=== PATIENT | male | born 1935 | race Caucasian/White ===

== ENCOUNTER 2019-07-28 08:16 | Observation (INO) ==
[2019-07-28 09:09] LABS: Basophils % 0.5 %; Eosinophils # 0.1 K/mcL (0.0-0.6); Hematocrit 38.4 % (37.5-50.1); Hemoglobin 12.6 g/dL (12.9-16.9); Immature Granulocytes % 0.5 % (0-4); Lymphocytes # 0.9 K/mcL (0.6-4.6); Mean Corpuscular HGB Conc 32.8 g/dL (31.6-35.5); Mean Corpuscular Volume 94.6 fL (83.0-100.0); Mean Platelet Volume 10.5 fL (9.4-12.4); Monocytes # 0.8 K/mcL (0.0-1.3); Monocytes % 13.2 %; Platelet Count 127 K/mcL (140-400); Red Blood Count 4.06 M/mcL (4.19-5.50); Red Cell Distribution Width 14.1 % (11.5-14.5); Segmented Neutrophils % 68.8 %; White Blood Count 5.8 K/mcL (4.3-11.1)
[2019-07-28 09:17] LABS: INR 1.1; Prothrombin Time 12.3 Seconds (9.4-12.1)
[2019-07-28 09:19] LABS: Activated Partial Thrombo Time 28.2 Seconds (26.0-36.0)
[2019-07-28 09:28] LABS: Troponin I < 0.03 ng/mL (< 0.04)
[2019-07-28 09:29] LABS: Bilirubin,Urine Small (Negative); Blood,Urine Large (Negative); Clarity,Urine Turbid (Clear); Color,Urine Yellow (Yellow); Glucose,Urine (UA) Normal (Normal); Ketones,Urine Negative (Negative); Leukocyte Esterase,Urine Large (Negative); Nitrite,Urine Positive (Negative); Protein,Urine 100 mg/dL (Neg-Trace); Specific Gravity,Urine 1.025 (1.010-1.025); Urobilinogen,Urine Normal (Normal)
[2019-07-28 09:32] LABS: Alanine Aminotransferase 58 Units/L (7-52); Albumin 3.4 g/dL (3.5-5.7); Albumin/Globulin Ratio 1.4 (1.1-2.2); Alkaline Phosphatase 68 Units/L (34-104); Aspartate Amino Transferase 150 Units/L (13-39); BUN/Creatinine Ratio 25 (6-26); Bilirubin,Total 0.7 mg/dL (0.3-1.0); Blood Urea Nitrogen 36 mg/dL (8-23); Calcium 8.8 mg/dL (8.6-10.3); Carbon Dioxide 30 mEq/L (23-29); Chloride 105 mEq/L (98-107); Globulin 2.4 g/dL (2.4-3.5); Glucose 122 mg/dL (70-105); Magnesium 2.1 mg/dL (1.6-2.6); Osmolality,Calculated 302 (280-300); Potassium 3.7 mEq/L (3.5-5.1); Sodium 141 mEq/L (136-145); Total Protein 5.8 g/dL (6.4-8.9); eGFR For African Americans 56 (> 60); eGFR For Non-African Americans 46 (> 60)
[2019-07-28 09:38] LABS: RBC,Urine TNTC per hpf (0-3); WBC,Urine TNTC per hpf (0-3)
[2019-07-28 09:39] LABS: Bacteria,Urine Moderate per hpf (None-Few); Squamous Epithelial Cell,Urine Few per lpf (None-Few)
[2019-07-28 09:41] LABS: Thyroid Stimulating Hormone 0.889 mcIU/mL (0.340-5.600)
[2019-07-28] MEDS ORDERED: Naloxone 0.4 MG/ML INJ IVP PRN (11:45)
[2019-07-28] MEDS ORDERED: Ibuprofen 400 MG TABLET PO PRN (11:45)
[2019-07-28] MEDS ORDERED: Ondansetron 4 MG/2 ML VIAL IVP PRN (11:45)
[2019-07-28] MEDS: 0.45 % Sodium Chloride w/KCl 20 MEQ/1,000 ML MLS IVC SCH (17:36)
[2019-07-28] MEDS: Lactobacillus 1 EACH CAP.SPRINK PO SCH (20:47)
[2019-07-29] MEDS: 0.45 % Sodium Chloride w/KCl 20 MEQ/1,000 ML MLS IVC SCH (03:30)
[2019-07-29 07:15] LABS: Basophils % 0.6 %; Eosinophils # 0.2 K/mcL (0.0-0.6); Eosinophils % 3.3 %; Hematocrit 40.2 % (37.5-50.1); Hemoglobin 13.4 g/dL (12.9-16.9); Immature Granulocytes % 0.3 % (0-4); Lymphocytes # 0.9 K/mcL (0.6-4.6); Lymphocytes % 14.5 %; Mean Corpuscular HGB Conc 33.3 g/dL (31.6-35.5); Mean Corpuscular Volume 93.1 fL (83.0-100.0); Mean Platelet Volume 9.9 fL (9.4-12.4); Monocytes # 0.6 K/mcL (0.0-1.3); Monocytes % 10.1 %; Neutrophils # 4.5 K/mcL (1.6-8.9); Platelet Count 130 K/mcL (140-400); Red Blood Count 4.32 M/mcL (4.19-5.50); Red Cell Distribution Width 13.6 % (11.5-14.5); Segmented Neutrophils % 71.2 %; White Blood Count 6.4 K/mcL (4.3-11.1)
[2019-07-29 07:30] LABS: Prothrombin Time 11.7 Seconds (9.4-12.1)
[2019-07-29 07:36] LABS: Alanine Aminotransferase 53 Units/L (7-52); Albumin 3.5 g/dL (3.5-5.7); Albumin/Globulin Ratio 1.5 (1.1-2.2); Alkaline Phosphatase 69 Units/L (34-104); Aspartate Amino Transferase 111 Units/L (13-39); BUN/Creatinine Ratio 24 (6-26); Bilirubin,Total 0.7 mg/dL (0.3-1.0); Blood Urea Nitrogen 22 mg/dL (8-23); Calcium 8.6 mg/dL (8.6-10.3); Carbon Dioxide 28 mEq/L (23-29); Chloride 104 mEq/L (98-107); Globulin 2.4 g/dL (2.4-3.5); Glucose 119 mg/dL (70-105); Osmolality,Calculated 292 (280-300); Sodium 139 mEq/L (136-145); Total Protein 5.9 g/dL (6.4-8.9); eGFR For African Americans > 60 (> 60); eGFR For Non-African Americans > 60 (> 60)
[2019-07-29 08:51] LABS: % Iron Saturation 14 % (20-55); Iron 36 mcg/dL (65-175); Transferrin 189 mg/dL (203-362)
[2019-07-29] MEDS ORDERED: cefTRIAXone 1,000 MG in Water for inj. (sterile) 10 ML IVP SCH (09:00)
[2019-07-29] MEDS: Lactobacillus 1 EACH CAP.SPRINK PO SCH (09:04)
[2019-07-29 09:09] LABS: Ferritin 91 ng/mL (20-250)
[2019-07-29 09:12] LABS: Folate 12.8 ng/mL (3.0-16.0)
[2019-07-29 11:14] VITALS: BP 128/81
== END 2019-07-29 12:45 | disposition home or self-care (01) ==
LOC: INPPIK 08:16 → EMEROOPIK 08:16 → INPPIK 11:23
PROVIDERS: ADMIT Internal Medicine; ATTEND Internal Medicine

== ENCOUNTER 2019-08-27 08:33 | Inpatient (IN) ==
[2019-08-27] MEDS ORDERED: cefTRIAXone 2,000 MG in Water for inj. (sterile) 20 ML IVP ONE (09:02)
[2019-08-27 09:13] LABS: Bilirubin,Urine Negative (Negative); Blood,Urine Small (Negative); Clarity,Urine Cloudy (Clear); Color,Urine Yellow (Yellow); Glucose,Urine (UA) Normal (Normal); Ketones,Urine Negative (Negative); Leukocyte Esterase,Urine Large (Negative); Nitrite,Urine Positive (Negative); Protein,Urine 30 mg/dL (Neg-Trace); Urobilinogen,Urine Normal (Normal)
[2019-08-27 09:23] LABS: Bacteria,Urine Many per hpf (None-Few); Squamous Epithelial Cell,Urine None Seen per lpf (None-Few); WBC,Urine TNTC per hpf (0-3)
[2019-08-27 09:28] LABS: Basophils # 0.1 K/mcL (0.0-0.2); Basophils % 0.5 %; Eosinophils # 0.1 K/mcL (0.0-0.6); Eosinophils % 1.1 %; Hematocrit 37.5 % (37.5-50.1); Hemoglobin 12.5 g/dL (12.9-16.9); Immature Granulocytes % 0.4 % (0-4); Lymphocytes # 1.1 K/mcL (0.6-4.6); Mean Corpuscular HGB Conc 33.3 g/dL (31.6-35.5); Mean Corpuscular Hemoglobin 31.9 pg (28.0-33.3); Mean Corpuscular Volume 95.7 fL (83.0-100.0); Mean Platelet Volume 10.8 fL (9.4-12.4); Monocytes # 0.8 K/mcL (0.0-1.3); Neutrophils # 8.9 K/mcL (1.6-8.9); Platelet Count 121 K/mcL (140-400); Red Blood Count 3.92 M/mcL (4.19-5.50); Red Cell Distribution Width 13.2 % (11.5-14.5)
[2019-08-27 09:47] LABS: Alanine Aminotransferase 10 Units/L (7-52); Albumin 3.7 g/dL (3.5-5.7); Albumin/Globulin Ratio 1.5 (1.1-2.2); Alkaline Phosphatase 75 Units/L (34-104); Aspartate Amino Transferase 20 Units/L (13-39); BUN/Creatinine Ratio 22 (6-26); Bilirubin,Total 0.7 mg/dL (0.3-1.0); Blood Urea Nitrogen 24 mg/dL (8-23); Calcium 9.1 mg/dL (8.6-10.3); Carbon Dioxide 29 mEq/L (23-29); Chloride 105 mEq/L (98-107); Creatine Kinase 134 Units/L (30-223); Globulin 2.5 g/dL (2.4-3.5); Glucose 107 mg/dL (70-105); Osmolality,Calculated 299 (280-300); Potassium 3.9 mEq/L (3.5-5.1); Sodium 142 mEq/L (136-145); Total Protein 6.2 g/dL (6.4-8.9); Troponin I < 0.03 ng/mL (< 0.04); eGFR For African Americans > 60 (> 60); eGFR For Non-African Americans > 60 (> 60)
[2019-08-27 10:00] LABS: Thyroid Stimulating Hormone 1.375 mcIU/mL (0.340-5.600)
[2019-08-27] MEDS ORDERED: 0.9 % Sodium Chloride 1,000 ML IVC SCH (10:00)
[2019-08-27] MEDS ORDERED: Naloxone 0.4 MG/ML INJ IVP PRN ×2 (10:31→12:06)
[2019-08-27] MEDS: 0.9 % Sodium Chloride 1,000 ML IVC SCH ×2 (12:39→19:56)
[2019-08-27] MEDS ORDERED: ZOLPIDEM TARTRATE PO PRN (12:40)
[2019-08-27] MEDS ORDERED: Melatonin 3 MG TABLET PO PRN (12:40)
[2019-08-27] MEDS: Lactobacillus 1 EACH CAP.SPRINK PO SCH (19:57)
[2019-08-28] MEDS: 0.9 % Sodium Chloride 1,000 ML IVC SCH ×2 (03:39→15:58)
[2019-08-28 04:26] LABS: Hematocrit 37.2 % (37.5-50.1); Hemoglobin 12.3 g/dL (12.9-16.9); Mean Corpuscular HGB Conc 33.1 g/dL (31.6-35.5); Mean Corpuscular Hemoglobin 31.5 pg (28.0-33.3); Mean Corpuscular Volume 95.4 fL (83.0-100.0); Mean Platelet Volume 10.3 fL (9.4-12.4); Platelet Count 119 K/mcL (140-400); Red Cell Distribution Width 13.2 % (11.5-14.5); White Blood Count 16.3 K/mcL (4.3-11.1)
[2019-08-28 05:11] LABS: BUN/Creatinine Ratio 16 (6-26); Blood Urea Nitrogen 15 mg/dL (8-23); Calcium 8.5 mg/dL (8.6-10.3); Carbon Dioxide 27 mEq/L (23-29); Chloride 105 mEq/L (98-107); Glucose 112 mg/dL (70-105); Osmolality,Calculated 292 (280-300); Potassium 3.9 mEq/L (3.5-5.1); Sodium 140 mEq/L (136-145); eGFR For African Americans > 60 (> 60); eGFR For Non-African Americans > 60 (> 60)
[2019-08-28] MEDS: Vitamin E 200 UNIT (90MG) CAPSULE PO SCH (08:59)
[2019-08-28] MEDS: Cholecalciferol (D-3) 1,000 UNIT (25MCG) TABLET PO SCH (08:59)
[2019-08-28] MEDS: Lactobacillus 1 EACH CAP.SPRINK PO SCH ×2 (08:59→19:51)
[2019-08-28] MEDS: Ascorbic Acid 500 MG TABLET PO SCH (08:59)
[2019-08-28] MEDS ORDERED: hydroCHLOROthiazide 25 MG TABLET PO SCH (09:00)
[2019-08-28] MEDS ORDERED: NON-FORMULARY MEDICATION 1 EACH EACH (Omega-3/Dha/Epa/Fish Oil [Fish Oil 1,000 Mg Softgel] PO SCH (09:00)
[2019-08-28] MEDS ORDERED: CO Q10 100 MG PO SCH (09:00)
[2019-08-28] MEDS ORDERED: GINKGO BILOBA PO SCH (09:00)
[2019-08-28] MEDS: cefTRIAXone 2,000 MG in 0.9 % Sodium Chloride Mini Bag 100 ML IVPB SCH (09:00)
[2019-08-28] MEDS: Mirabegron [Myrbetriq] 50 MG PO SCH (09:01)
[2019-08-29] MEDS: 0.9 % Sodium Chloride 1,000 ML IVC SCH ×3 (05:14→20:22)
[2019-08-29] MEDS: *HR* Enoxaparin 40 MG/0.4 ML SYRINGE SQ SCH (05:15)
[2019-08-29] MEDS: Vitamin E 200 UNIT (90MG) CAPSULE PO SCH (08:20)
[2019-08-29] MEDS: Lactobacillus 1 EACH CAP.SPRINK PO SCH ×2 (08:20→19:40)
[2019-08-29] MEDS: Ascorbic Acid 500 MG TABLET PO SCH (08:20)
[2019-08-29] MEDS: Cholecalciferol (D-3) 1,000 UNIT (25MCG) TABLET PO SCH (08:20)
[2019-08-29] MEDS: cefTRIAXone 2,000 MG in 0.9 % Sodium Chloride Mini Bag 100 ML IVPB SCH (08:20)
[2019-08-29] MEDS: Mirabegron [Myrbetriq] 50 MG PO SCH (08:21)
[2019-08-29 11:24] LABS: Hemoglobin 13.2 g/dL (12.9-16.9); Mean Corpuscular Hemoglobin 31.6 pg (28.0-33.3); Mean Corpuscular Volume 95.7 fL (83.0-100.0); Mean Platelet Volume 10.8 fL (9.4-12.4); Platelet Count 138 K/mcL (140-400); Red Blood Count 4.18 M/mcL (4.19-5.50); Red Cell Distribution Width 13.3 % (11.5-14.5); White Blood Count 12.3 K/mcL (4.3-11.1)
[2019-08-29 12:01] LABS: BUN/Creatinine Ratio 13 (6-26); Blood Urea Nitrogen 13 mg/dL (8-23); Calcium 8.9 mg/dL (8.6-10.3); Carbon Dioxide 29 mEq/L (23-29); Chloride 105 mEq/L (98-107); Glucose 123 mg/dL (70-105); Osmolality,Calculated 295 (280-300); Sodium 142 mEq/L (136-145); eGFR For African Americans > 60 (> 60); eGFR For Non-African Americans > 60 (> 60)
[2019-08-30] MEDS: Ascorbic Acid 500 MG TABLET PO SCH (06:21)
[2019-08-30] MEDS: *HR* Enoxaparin 40 MG/0.4 ML SYRINGE SQ SCH (06:22)
[2019-08-30] MEDS ORDERED: cefTRIAXone 2,000 MG in Water for inj. (sterile) 20 ML IVPB SCH (09:00)
[2019-08-30] MEDS: Cholecalciferol (D-3) 1,000 UNIT (25MCG) TABLET PO SCH (09:54)
[2019-08-30] MEDS: Lactobacillus 1 EACH CAP.SPRINK PO SCH ×2 (09:54→22:12)
[2019-08-30] MEDS: Vitamin E 200 UNIT (90MG) CAPSULE PO SCH (09:55)
[2019-08-30] MEDS: Mirabegron [Myrbetriq] 50 MG PO SCH (09:57)
[2019-08-30] MEDS: 0.9 % Sodium Chloride 1,000 ML IVC SCH (10:04)
[2019-08-31] MEDS: Ascorbic Acid 500 MG TABLET PO SCH (06:07)
[2019-08-31] MEDS: *HR* Enoxaparin 40 MG/0.4 ML SYRINGE SQ SCH (06:07)
[2019-08-31] MEDS: 0.9 % Sodium Chloride 1,000 ML IVC SCH (06:12)
[2019-08-31 06:50] VITALS: BP 146/93
[2019-08-31] MEDS: Cholecalciferol (D-3) 1,000 UNIT (25MCG) TABLET PO SCH (08:05)
[2019-08-31] MEDS: Lactobacillus 1 EACH CAP.SPRINK PO SCH (08:05)
[2019-08-31] MEDS: Mirabegron [Myrbetriq] 50 MG PO SCH (08:06)
[2019-08-31] MEDS: Vitamin E 200 UNIT (90MG) CAPSULE PO SCH (08:06)
== END 2019-08-31 10:22 | disposition other institution (70) | DRG 690 ==
LOC: EMEROOPIK 08:33 → INPPIK 08:33
PROVIDERS: ADMIT Family Medicine; ATTEND Family Medicine

== ENCOUNTER 2019-08-31 10:29 | Inpatient (IN) ==
[2019-08-31] MEDS: Lactobacillus 1 EACH CAP.SPRINK PO SCH (20:27)
[2019-09-01] MEDS: Ascorbic Acid 500 MG TABLET PO SCH (05:43)
[2019-09-01] MEDS: *HR* Enoxaparin 40 MG/0.4 ML SYRINGE SQ SCH (05:43)
[2019-09-01 06:06] LABS: Basophils # 0.1 K/mcL (0.0-0.2); Basophils % 0.9 %; Eosinophils # 0.5 K/mcL (0.0-0.6); Eosinophils % 7.5 %; Hematocrit 38.6 % (37.5-50.1); Hemoglobin 12.5 g/dL (12.9-16.9); Lymphocytes # 1.8 K/mcL (0.6-4.6); Mean Corpuscular HGB Conc 32.4 g/dL (31.6-35.5); Mean Corpuscular Hemoglobin 30.9 pg (28.0-33.3); Mean Corpuscular Volume 95.3 fL (83.0-100.0); Mean Platelet Volume 10.1 fL (9.4-12.4); Monocytes # 0.6 K/mcL (0.0-1.3); Monocytes % 7.9 %; Neutrophils # 3.9 K/mcL (1.6-8.9); Platelet Count 171 K/mcL (140-400); Red Blood Count 4.05 M/mcL (4.19-5.50); Red Cell Distribution Width 13.4 % (11.5-14.5); Segmented Neutrophils % 56.7 %; White Blood Count 6.9 K/mcL (4.3-11.1)
[2019-09-01 06:25] LABS: BUN/Creatinine Ratio 18 (6-26); Blood Urea Nitrogen 24 mg/dL (8-23); Carbon Dioxide 30 mEq/L (23-29); Chloride 106 mEq/L (98-107); Glucose 118 mg/dL (70-105); Osmolality,Calculated 303 (280-300); Potassium 3.9 mEq/L (3.5-5.1); Sodium 144 mEq/L (136-145); eGFR For African Americans > 60 (> 60); eGFR For Non-African Americans 52 (> 60)
[2019-09-01] MEDS: Cholecalciferol (D-3) 1,000 UNIT (25MCG) TABLET PO SCH (09:08)
[2019-09-01] MEDS: Lactobacillus 1 EACH CAP.SPRINK PO SCH ×2 (09:08→19:47)
[2019-09-01] MEDS: Melatonin 3 MG TABLET PO PRN (19:48)
[2019-09-02] MEDS: Ascorbic Acid 500 MG TABLET PO SCH (06:12)
[2019-09-02] MEDS: *HR* Enoxaparin 40 MG/0.4 ML SYRINGE SQ SCH (06:12)
[2019-09-02] MEDS: Lactobacillus 1 EACH CAP.SPRINK PO SCH ×2 (08:20→19:53)
[2019-09-02] MEDS: Cholecalciferol (D-3) 1,000 UNIT (25MCG) TABLET PO SCH (08:20)
[2019-09-03] MEDS: Ascorbic Acid 500 MG TABLET PO SCH (05:32)
[2019-09-03] MEDS: *HR* Enoxaparin 40 MG/0.4 ML SYRINGE SQ SCH (05:32)
[2019-09-03] MEDS: Lactobacillus 1 EACH CAP.SPRINK PO SCH ×2 (09:36→20:08)
[2019-09-03] MEDS: Cholecalciferol (D-3) 1,000 UNIT (25MCG) TABLET PO SCH (09:36)
[2019-09-03] MEDS: Melatonin 3 MG TABLET PO PRN (20:09)
[2019-09-04] MEDS: Ascorbic Acid 500 MG TABLET PO SCH (05:39)
[2019-09-04] MEDS: *HR* Enoxaparin 40 MG/0.4 ML SYRINGE SQ SCH (05:39)
[2019-09-04] MEDS: Lactobacillus 1 EACH CAP.SPRINK PO SCH ×2 (10:24→20:36)
[2019-09-04] MEDS: Cholecalciferol (D-3) 1,000 UNIT (25MCG) TABLET PO SCH (10:25)
[2019-09-04] MEDS: Melatonin 3 MG TABLET PO PRN (20:38)
[2019-09-05] MEDS: Ascorbic Acid 500 MG TABLET PO SCH (05:31)
[2019-09-05] MEDS: *HR* Enoxaparin 40 MG/0.4 ML SYRINGE SQ SCH (05:31)
[2019-09-05 06:33] LABS: Hematocrit 39.4 % (37.5-50.1); Hemoglobin 12.9 g/dL (12.9-16.9); Mean Corpuscular HGB Conc 32.7 g/dL (31.6-35.5); Mean Corpuscular Hemoglobin 31.4 pg (28.0-33.3); Mean Corpuscular Volume 95.9 fL (83.0-100.0); Mean Platelet Volume 10.2 fL (9.4-12.4); Platelet Count 175 K/mcL (140-400); Red Blood Count 4.11 M/mcL (4.19-5.50); Red Cell Distribution Width 13.2 % (11.5-14.5); White Blood Count 7.8 K/mcL (4.3-11.1)
[2019-09-05 06:52] LABS: BUN/Creatinine Ratio 27 (6-26); Blood Urea Nitrogen 27 mg/dL (8-23); Carbon Dioxide 31 mEq/L (23-29); Chloride 105 mEq/L (98-107); Glucose 112 mg/dL (70-105); Osmolality,Calculated 300 (280-300); Sodium 142 mEq/L (136-145); eGFR For African Americans > 60 (> 60); eGFR For Non-African Americans > 60 (> 60)
[2019-09-05] MEDS: Cholecalciferol (D-3) 1,000 UNIT (25MCG) TABLET PO SCH (08:48)
[2019-09-05] MEDS: Lactobacillus 1 EACH CAP.SPRINK PO SCH ×2 (08:48→20:02)
[2019-09-05] MEDS: Melatonin 3 MG TABLET PO PRN (20:03)
[2019-09-06] MEDS: *HR* Enoxaparin 40 MG/0.4 ML SYRINGE SQ SCH (05:42)
[2019-09-06] MEDS: Ascorbic Acid 500 MG TABLET PO SCH (05:42)
[2019-09-06 06:47] VITALS: BP 166/84
[2019-09-06] MEDS: Cholecalciferol (D-3) 1,000 UNIT (25MCG) TABLET PO SCH (08:44)
[2019-09-06] MEDS: Lactobacillus 1 EACH CAP.SPRINK PO SCH (08:44)
== END 2019-09-06 13:46 | disposition home health service (06) | DRG 945 ==
LOC: INPPIK 10:29
PROVIDERS: ADMIT Family Medicine; ATTEND Family Medicine

== ENCOUNTER 2019-09-28 08:57 | Inpatient (IN) ==
[2019-09-28 09:37] LABS: Basophils % 0.5 %; Eosinophils # 0.1 K/mcL (0.0-0.6); Eosinophils % 0.9 %; Hematocrit 40.9 % (37.5-50.1); Hemoglobin 13.4 g/dL (12.9-16.9); Immature Granulocytes % 0.2 % (0-4); Lymphocytes # 0.7 K/mcL (0.6-4.6); Lymphocytes % 7.7 %; Mean Corpuscular HGB Conc 32.8 g/dL (31.6-35.5); Mean Corpuscular Hemoglobin 31.5 pg (28.0-33.3); Mean Corpuscular Volume 96.2 fL (83.0-100.0); Mean Platelet Volume 11.3 fL (9.4-12.4); Monocytes # 0.4 K/mcL (0.0-1.3); Monocytes % 4.3 %; Neutrophils # 7.6 K/mcL (1.6-8.9); Platelet Count 119 K/mcL (140-400); Red Blood Count 4.25 M/mcL (4.19-5.50); Red Cell Distribution Width 13.4 % (11.5-14.5); Segmented Neutrophils % 86.4 %; White Blood Count 8.8 K/mcL (4.3-11.1)
[2019-09-28 09:54] LABS: Alanine Aminotransferase 9 Units/L (7-52); Albumin 3.8 g/dL (3.5-5.7); Albumin/Globulin Ratio 1.6 (1.1-2.2); Alkaline Phosphatase 67 Units/L (34-104); Aspartate Amino Transferase 18 Units/L (13-39); BUN/Creatinine Ratio 25 (6-26); Bilirubin,Total 0.5 mg/dL (0.3-1.0); Blood Urea Nitrogen 29 mg/dL (8-23); Calcium 9.1 mg/dL (8.6-10.3); Carbon Dioxide 28 mEq/L (23-29); Chloride 106 mEq/L (98-107); Globulin 2.4 g/dL (2.4-3.5); Glucose 149 mg/dL (70-105); Osmolality,Calculated 305 (280-300); Potassium 4.1 mEq/L (3.5-5.1); Sodium 143 mEq/L (136-145); Total Protein 6.2 g/dL (6.4-8.9); eGFR For African Americans > 60 (> 60); eGFR For Non-African Americans 60 (> 60)
[2019-09-28 09:55] LABS: Troponin I < 0.03 ng/mL (< 0.04)
[2019-09-28 11:00] LABS: Bilirubin,Urine Negative (Negative); Blood,Urine Trace-intact (Negative); Clarity,Urine Slightly Cloudy (Clear); Color,Urine Yellow (Yellow); Glucose,Urine (UA) Normal (Normal); Ketones,Urine Negative (Negative); Leukocyte Esterase,Urine Small (Negative); Nitrite,Urine Negative (Negative); PH,Urine 6.5 pH Units (5.0-8.0); Protein,Urine Negative (Neg-Trace); Specific Gravity,Urine 1.025 (1.010-1.025); Urobilinogen,Urine Normal (Normal)
[2019-09-28 11:14] LABS: Bacteria,Urine Few per hpf (None-Few); Mucus,Urine Few per lpf (Few); Squamous Epithelial Cell,Urine Few per lpf (None-Few); WBC,Urine TNTC per hpf (0-3)
[2019-09-28] MEDS ORDERED: 0.9 % Sodium Chloride 1,000 ML IV ONE (11:35)
[2019-09-28] MEDS ORDERED: cefTRIAXone 1,000 MG in 0.9 % Sodium Chloride Mini Bag 100 ML IVPB ONE (11:35)
[2019-09-28] MEDS ORDERED: Naloxone 0.4 MG/ML INJ IVP PRN (13:02)
[2019-09-28] MEDS ORDERED: Mag Hydrox/Al Hydrox/Simeth 30 ML UDC PO PRN (13:02)
[2019-09-28] MEDS: Lactobacillus 1 EACH CAP.SPRINK PO SCH (22:47)
[2019-09-28] MEDS: 0.9 % Sodium Chloride 1,000 ML IV SCH (22:47)
[2019-09-29 06:19] LABS: Basophils % 0.6 %; Eosinophils # 0.4 K/mcL (0.0-0.6); Eosinophils % 5.2 %; Hematocrit 38.5 % (37.5-50.1); Hemoglobin 12.6 g/dL (12.9-16.9); Immature Granulocytes % 0.3 % (0-4); Lymphocytes # 1.4 K/mcL (0.6-4.6); Mean Corpuscular HGB Conc 32.7 g/dL (31.6-35.5); Mean Corpuscular Hemoglobin 31.3 pg (28.0-33.3); Mean Corpuscular Volume 95.5 fL (83.0-100.0); Mean Platelet Volume 10.5 fL (9.4-12.4); Monocytes # 0.5 K/mcL (0.0-1.3); Monocytes % 6.9 %; Neutrophils # 4.5 K/mcL (1.6-8.9); Platelet Count 127 K/mcL (140-400); Red Blood Count 4.03 M/mcL (4.19-5.50); Red Cell Distribution Width 13.2 % (11.5-14.5); White Blood Count 6.8 K/mcL (4.3-11.1)
[2019-09-29] MEDS: 0.9 % Sodium Chloride 1,000 ML IV SCH ×2 (06:44→09:42)
[2019-09-29 09:25] LABS: BUN/Creatinine Ratio 18 (6-26); Blood Urea Nitrogen 17 mg/dL (8-23); Calcium 8.5 mg/dL (8.6-10.3); Carbon Dioxide 28 mEq/L (23-29); Chloride 106 mEq/L (98-107); Glucose 100 mg/dL (70-105); Osmolality,Calculated 292 (280-300); Potassium 3.9 mEq/L (3.5-5.1); Sodium 140 mEq/L (136-145); eGFR For African Americans > 60 (> 60); eGFR For Non-African Americans > 60 (> 60)
[2019-09-29] MEDS: Lactobacillus 1 EACH CAP.SPRINK PO SCH ×2 (09:39→20:49)
[2019-09-29] MEDS: MYRBETRIC 50 MG PO SCH (09:41)
[2019-09-29] MEDS: cefTRIAXone 2,000 MG in Water for inj. (sterile) 20 ML IVPB SCH (09:41)
[2019-09-30] MEDS: 0.9 % Sodium Chloride 1,000 ML IV SCH (01:03)
[2019-09-30 06:39] VITALS: BP 157/85
[2019-09-30 06:46] LABS: Hematocrit 38.3 % (37.5-50.1); Hemoglobin 12.7 g/dL (12.9-16.9); Mean Corpuscular HGB Conc 33.2 g/dL (31.6-35.5); Mean Corpuscular Hemoglobin 31.1 pg (28.0-33.3); Mean Corpuscular Volume 93.9 fL (83.0-100.0); Mean Platelet Volume 10.6 fL (9.4-12.4); Platelet Count 127 K/mcL (140-400); Red Blood Count 4.08 M/mcL (4.19-5.50); Red Cell Distribution Width 13.1 % (11.5-14.5); White Blood Count 6.6 K/mcL (4.3-11.1)
[2019-09-30 07:06] LABS: BUN/Creatinine Ratio 13 (6-26); Blood Urea Nitrogen 12 mg/dL (8-23); Calcium 8.8 mg/dL (8.6-10.3); Carbon Dioxide 30 mEq/L (23-29); Chloride 106 mEq/L (98-107); Glucose 107 mg/dL (70-105); Osmolality,Calculated 294 (280-300); Potassium 4.2 mEq/L (3.5-5.1); Sodium 142 mEq/L (136-145); eGFR For African Americans > 60 (> 60); eGFR For Non-African Americans > 60 (> 60)
[2019-09-30] MEDS: Lactobacillus 1 EACH CAP.SPRINK PO SCH (08:32)
[2019-09-30] MEDS: cefTRIAXone 2,000 MG in Water for inj. (sterile) 20 ML IVPB SCH (08:32)
[2019-09-30] MEDS: MYRBETRIC 50 MG PO SCH (08:33)
[2019-09-30] MEDS ORDERED: *HR* Enoxaparin 40 MG/0.4 ML SYRINGE SQ SCH (09:00)
== END 2019-09-30 15:40 | DRG 690 ==
LOC: INPPIK 08:57 → EMEROOPIK 08:57 → INPPIK 13:32
PROVIDERS: ADMIT Family Medicine; ATTEND Family Medicine

== ENCOUNTER 2019-11-24 10:09 | Observation (INO) ==
[2019-11-24] MEDS ORDERED: Haloperidol Lactate 5 MG/ML VIAL IVP ONE (10:16)
[2019-11-24] MEDS ORDERED: 0.9 % Sodium Chloride 500 ML IVC ONE (10:16)
[2019-11-24] MEDS ORDERED: cefTRIAXone 2,000 MG in 0.9 % Sodium Chloride Mini Bag 100 ML IVPB ONE (10:16)
[2019-11-24] MEDS ORDERED: 0.9 % Sodium Chloride 1,000 ML IVC SCH (10:30)
[2019-11-24 10:41] LABS: Basophils % 0.5 %; Eosinophils # 0.1 K/mcL (0.0-0.6); Eosinophils % 1.4 %; Hematocrit 40.9 % (37.5-50.1); Hemoglobin 13.3 g/dL (12.9-16.9); Immature Granulocytes % 0.5 % (0-4); Lymphocytes # 0.2 K/mcL (0.6-4.6); Lymphocytes % 5.6 %; Mean Corpuscular HGB Conc 32.5 g/dL (31.6-35.5); Mean Corpuscular Hemoglobin 30.7 pg (28.0-33.3); Mean Corpuscular Volume 94.5 fL (83.0-100.0); Mean Platelet Volume 10.3 fL (9.4-12.4); Monocytes % 0.5 %; Neutrophils # 3.9 K/mcL (1.6-8.9); Platelet Count 127 K/mcL (140-400); Red Blood Count 4.33 M/mcL (4.19-5.50); Red Cell Distribution Width 13.8 % (11.5-14.5); Segmented Neutrophils % 91.5 %; White Blood Count 4.3 K/mcL (4.3-11.1)
[2019-11-24 11:01] LABS: Alanine Aminotransferase 22 Units/L (7-52); Albumin 3.7 g/dL (3.5-5.7); Albumin/Globulin Ratio 1.2 (1.1-2.2); Alkaline Phosphatase 76 Units/L (34-104); Aspartate Amino Transferase 31 Units/L (13-39); BUN/Creatinine Ratio 23 (6-26); Bilirubin,Direct 0.1 mg/dL (0.0-0.2); Bilirubin,Indirect 0.7 mg/dL (0.0-1.0); Bilirubin,Total 0.8 mg/dL (0.3-1.0); Blood Urea Nitrogen 30 mg/dL (8-23); Calcium 9.1 mg/dL (8.6-10.3); Carbon Dioxide 32 mEq/L (23-29); Chloride 98 mEq/L (98-107); Globulin 3.1 g/dL (2.4-3.5); Glucose 147 mg/dL (70-105); Osmolality,Calculated 299 (280-300); Potassium 3.8 mEq/L (3.5-5.1); Sodium 140 mEq/L (136-145); Total Protein 6.8 g/dL (6.4-8.9); eGFR For African Americans > 60 (> 60); eGFR For Non-African Americans 53 (> 60)
[2019-11-24 11:03] LABS: Activated Partial Thrombo Time 26.9 Seconds (26.0-36.0); Prothrombin Time 12.3 Seconds (9.4-12.1)
[2019-11-24 11:04] LABS: INR 1.1
[2019-11-24 11:07] LABS: Platelet Estimate Decreased (Normal)
[2019-11-24 11:54] LABS: Bilirubin,Urine Negative (Negative); Blood,Urine Moderate (Negative); Clarity,Urine Cloudy (Clear); Color,Urine Yellow (Yellow); Glucose,Urine (UA) Normal (Normal); Ketones,Urine Negative (Negative); Leukocyte Esterase,Urine Large (Negative); Nitrite,Urine Positive (Negative); PH,Urine 7.5 pH Units (5.0-8.0); Protein,Urine >=300 mg/dL (Neg-Trace); Specific Gravity,Urine 1.025 (1.010-1.025); Urobilinogen,Urine Normal (Normal)
[2019-11-24 12:02] LABS: RBC,Urine 15-30 per hpf (0-3); WBC,Urine TNTC per hpf (0-3)
[2019-11-24 12:03] LABS: Bacteria,Urine Moderate per hpf (None-Few); Mucus,Urine Few per lpf (Few)
[2019-11-24] MEDS ORDERED: 0.9 % Sodium Chloride 1,000 ML IVC ONE (12:07)
[2019-11-24] MEDS ORDERED: Melatonin 3 MG TABLET PO PRN (14:01)
[2019-11-24] MEDS ORDERED: Ondansetron 4 MG/2 ML VIAL IVP PRN (14:14)
[2019-11-24] MEDS ORDERED: Naloxone 0.4 MG/ML INJ IVP PRN (14:14)
[2019-11-24] MEDS ORDERED: 0.9 % Sodium Chloride 1,000 ML IV SCH (14:30)
[2019-11-24] MEDS: Piperacillin/Tazobactam 3.375 GM in 0.9 % Sodium Chloride Mini Bag 100 ML IVPB SCH (19:24)
[2019-11-24] MEDS: Carbidopa/Levodopa 25/250 TABLET PO SCH (21:43)
[2019-11-25] MEDS: Piperacillin/Tazobactam 3.375 GM in 0.9 % Sodium Chloride Mini Bag 100 ML IVPB SCH (01:29)
[2019-11-25] MEDS ORDERED: Piperacillin/Tazobactam 3.375 GM in 0.9 % Sodium Chloride Mini Bag 100 ML IVPB SCH (04:00)
[2019-11-25 06:37] LABS: Hematocrit 33.1 % (37.5-50.1); Hemoglobin 10.7 g/dL (12.9-16.9); Mean Corpuscular HGB Conc 32.3 g/dL (31.6-35.5); Mean Corpuscular Hemoglobin 30.8 pg (28.0-33.3); Mean Corpuscular Volume 95.4 fL (83.0-100.0); Red Blood Count 3.47 M/mcL (4.19-5.50); Red Cell Distribution Width 14.4 % (11.5-14.5); White Blood Count 6.8 K/mcL (4.3-11.1)
[2019-11-25 06:40] LABS: Platelet Count 95 K/mcL (140-400)
[2019-11-25 06:51] VITALS: BP 132/82
[2019-11-25 07:00] LABS: BUN/Creatinine Ratio 26 (6-26); Blood Urea Nitrogen 29 mg/dL (8-23); Calcium 8.2 mg/dL (8.6-10.3); Carbon Dioxide 28 mEq/L (23-29); Chloride 107 mEq/L (98-107); Glucose 101 mg/dL (70-105); Osmolality,Calculated 304 (280-300); Potassium 3.7 mEq/L (3.5-5.1); Sodium 144 mEq/L (136-145); eGFR For African Americans > 60 (> 60); eGFR For Non-African Americans > 60 (> 60)
[2019-11-25] MEDS ORDERED: Ascorbic Acid 500 MG TABLET PO SCH (07:30)
[2019-11-25] MEDS ORDERED: NON-FORMULARY MEDICATION 1 EACH EACH (Omega-3/Dha/Epa/Fish Oil [Fish Oil 1,000 Mg Softgel] PO SCH (09:00)
[2019-11-25] MEDS ORDERED: Cholecalciferol (D-3) 1,000 UNIT (25MCG) TABLET PO SCH (09:00)
[2019-11-25] MEDS ORDERED: Mirabegron [Myrbetriq] 50 MG PO SCH (09:00)
[2019-11-25] MEDS ORDERED: levoFLOXacin 500 MG TABLET PO SCH (09:00)
[2019-11-25] MEDS ORDERED: cefTRIAXone 2,000 MG in 0.9 % Sodium Chloride Mini Bag 100 ML IVPB SCH (09:00)
[2019-11-25] MEDS: Carbidopa/Levodopa 25/250 TABLET PO SCH (09:46)
[2019-11-28 15:06] LABS: Acinetobacter baumannii by PCR Not Detected (Not Detect); Candida albicans by PCR Not Detected (Not Detect); Enterobacter cloacae Cmplx PCR Not Detected (Not Detect); Enterococcus by PCR Not Detected (Not Detect); Escherichia coli by PCR Not Detected (Not Detect); Klebsiella oxytoca by PCR Not Detected (Not Detect); Klebsiella pneumoniae by PCR Not Detected (Not Detect); Proteus by PCR DETECTED (Not Detect); Pseudomonas aeruginosa by PCR Not Detected (Not Detect); Serratia marcescens by PCR Not Detected (Not Detect); Staphylococcus aureus by PCR Not Detected (Not Detect); Staphylococcus by PCR Not Detected (Not Detect); Streptococcus agalactiae(B)PCR Not Detected (Not Detect); Streptococcus by PCR Not Detected (Not Detect); Streptococcus pneumoniae PCR Not Detected (Not Detect); Streptococcus pyogenes (A) PCR Not Detected (Not Detect)
[2019-11-28 15:07] LABS: Candida glabrata by PCR Not Detected (Not Detect); Candida krusei by PCR Not Detected (Not Detect); Candida parapsilosis by PCR Not Detected (Not Detect); Candida tropicalis by PCR Not Detected (Not Detect)
== END 2019-11-25 12:56 ==
LOC: INPPIK 10:09 → EMEROOPIK 10:09 → INPPIK 13:33
PROVIDERS: ADMIT Family Medicine; ATTEND Family Medicine

== ENCOUNTER 2019-12-20 09:03 | Inpatient (IN) ==
[2019-12-20] MEDS ORDERED: 0.9 % Sodium Chloride 500 ML IVC ONE (09:13)
[2019-12-20 09:49] LABS: Hematocrit 44.3 % (37.5-50.1); Hemoglobin 13.9 g/dL (12.9-16.9); Mean Corpuscular HGB Conc 31.4 g/dL (31.6-35.5); Mean Corpuscular Hemoglobin 30.6 pg (28.0-33.3); Mean Corpuscular Volume 97.6 fL (83.0-100.0); Mean Platelet Volume 10.1 fL (9.4-12.4); Platelet Count 204 K/mcL (140-400); Red Blood Count 4.54 M/mcL (4.19-5.50); Red Cell Distribution Width 14.6 % (11.5-14.5)
[2019-12-20 10:02] LABS: White Blood Count 37.6 K/mcL (4.3-11.1)
[2019-12-20 10:06] LABS: Troponin I < 0.03 ng/mL (< 0.04)
[2019-12-20 10:07] LABS: Alanine Aminotransferase 18 Units/L (7-52); Albumin 3.1 g/dL (3.5-5.7); Albumin/Globulin Ratio 0.8 (1.1-2.2); Alkaline Phosphatase 99 Units/L (34-104); Aspartate Amino Transferase 16 Units/L (13-39); BUN/Creatinine Ratio 49 (6-26); Bilirubin,Direct 0.7 mg/dL (0.0-0.2); Bilirubin,Indirect 0.7 mg/dL (0.0-1.0); Bilirubin,Total 1.4 mg/dL (0.3-1.0); Blood Urea Nitrogen 77 mg/dL (8-23); Calcium 9.2 mg/dL (8.6-10.3); Carbon Dioxide 32 mEq/L (23-29); Chloride 109 mEq/L (98-107); Globulin 3.9 g/dL (2.4-3.5); Glucose 185 mg/dL (70-105); Osmolality,Calculated 348 (280-300); Potassium 4.2 mEq/L (3.5-5.1); Sodium 155 mEq/L (136-145); eGFR For African Americans 52 (> 60); eGFR For Non-African Americans 43 (> 60)
[2019-12-20 10:16] LABS: Prothrombin Time 14.8 Seconds (9.4-12.1)
[2019-12-20 10:17] LABS: Activated Partial Thrombo Time 25.7 Seconds (26.0-36.0); INR 1.3
[2019-12-20] MEDS ORDERED: Piperacillin/Tazobactam 3.375 GM in 0.9 % Sodium Chloride Mini Bag 100 ML IVPB ONE (10:18)
[2019-12-20 10:23] LABS: Hypersegmented Neutrophils Present (Not Present); Lymphocytes # 3.8 K/mcL (0.6-4.6); Monocytes # 1.5 K/mcL (0.0-1.3); Neutrophils # 30.8 K/mcL (1.6-8.9)
[2019-12-20 10:24] LABS: Platelet Estimate Normal (Normal)
[2019-12-20 11:04] LABS: Bilirubin,Urine Small (Negative); Blood,Urine Large (Negative); Clarity,Urine Turbid (Clear); Color,Urine Other (Yellow); Glucose,Urine (UA) Normal (Normal); Ketones,Urine Negative (Negative); Leukocyte Esterase,Urine Large (Negative); Nitrite,Urine Positive (Negative); PH,Urine >=9.0 pH Units (5.0-8.0); Protein,Urine 100 mg/dL (Neg-Trace); Urobilinogen,Urine Normal (Normal)
[2019-12-20 11:14] LABS: Bacteria,Urine Many per hpf (None-Few); Mucus,Urine Many per lpf (Few); RBC,Urine TNTC per hpf (0-3); Squamous Epithelial Cell,Urine Few per lpf (None-Few); Triple Phosphate Crystal,Urine Present; WBC,Urine TNTC per hpf (0-3)
[2019-12-20 11:19] LABS: Amphetamine Screen,Urine Negative ng/mL (Cutoff=1000); Barbiturate Screen,Urine Negative ng/mL (Cutoff=200); Benzodiazepines Screen,Urine Negative ng/mL (Cutoff=200); Cannabinoid Screen,Urine Negative ng/mL (Cutoff = 50); Cocaine Screen,Urine Negative ng/mL (Cutoff= 300); Opiate Screen,Urine Negative ng/mL (Cutoff=300); Phencyclidine Screen,Urine Negative ng/mL (Cutoff=25)
[2019-12-20] MEDS ORDERED: Naloxone 0.4 MG/ML INJ IVP PRN (12:23)
[2019-12-20] MEDS ORDERED: Ondansetron 4 MG/2 ML VIAL IVP PRN (12:23)
[2019-12-20] MEDS ORDERED: 0.9 % Sodium Chloride 1,000 ML IV SCH (12:30)
[2019-12-20] MEDS: 0.9 % Sodium Chloride 1,000 ML IVC SCH ×2 (14:58→15:08)
[2019-12-20 17:19] LABS: Basophils # 0.1 K/mcL (0.0-0.2); Basophils % 0.3 %; Eosinophils % 0.1 %; Hematocrit 38.6 % (37.5-50.1); Hemoglobin 12.2 g/dL (12.9-16.9); Immature Granulocytes % 2.9 % (0-4); Lymphocytes # 1.4 K/mcL (0.6-4.6); Lymphocytes % 4.3 %; Mean Corpuscular HGB Conc 31.6 g/dL (31.6-35.5); Mean Corpuscular Hemoglobin 30.6 pg (28.0-33.3); Mean Corpuscular Volume 96.7 fL (83.0-100.0); Mean Platelet Volume 10.2 fL (9.4-12.4); Neutrophils # 27.7 K/mcL (1.6-8.9); Platelet Count 182 K/mcL (140-400); Red Blood Count 3.99 M/mcL (4.19-5.50); Red Cell Distribution Width 14.6 % (11.5-14.5); Segmented Neutrophils % 88.4 %
[2019-12-20 17:22] LABS: Monocytes # 1.3 K/mcL (0.0-1.3); White Blood Count 31.3 K/mcL (4.3-11.1)
[2019-12-20 17:32] LABS: Calcium 8.7 mg/dL (8.6-10.3); Potassium 4.2 mEq/L (3.5-5.1)
[2019-12-20] MEDS ORDERED: Dextrose Gel 15 GM/37.5 ML TUBE PO PRN ×2 (17:47)
[2019-12-20] MEDS ORDERED: *HR* Dextrose 50 % in Water (Vial) 50 ML VIAL IVP PRN (17:47)
[2019-12-20] MEDS: D5% in Water 1,000 ML IVC SCH (18:10)
[2019-12-20] MEDS: Piperacillin/Tazobactam 3.375 GM in 0.9 % Sodium Chloride Mini Bag 100 ML IVPB SCH (18:11)
[2019-12-20] MEDS: *HR* Heparin 5,000 UNIT/ML VIAL SQ SCH (18:11)
[2019-12-20 18:13] LABS: Platelet Estimate Normal (Normal)
[2019-12-20] MEDS: Carbidopa/Levodopa 25/250 TABLET PO SCH (19:52)
[2019-12-20] MEDS ORDERED: Insulin LISPRO 300 UNITS/3 ML VIAL SQ SCH (21:00)
[2019-12-20 23:26] LABS: Hematocrit 39.7 % (37.5-50.1); Hemoglobin 12.2 g/dL (12.9-16.9); Mean Corpuscular HGB Conc 30.7 g/dL (31.6-35.5); Mean Corpuscular Hemoglobin 30.3 pg (28.0-33.3); Mean Corpuscular Volume 98.8 fL (83.0-100.0); Platelet Count 190 K/mcL (140-400); Red Blood Count 4.02 M/mcL (4.19-5.50); Red Cell Distribution Width 14.8 % (11.5-14.5); White Blood Count 26.5 K/mcL (4.3-11.1)
[2019-12-20 23:41] LABS: Calcium 8.6 mg/dL (8.6-10.3)
[2019-12-21] MEDS: Piperacillin/Tazobactam 3.375 GM in 0.9 % Sodium Chloride Mini Bag 100 ML IVPB SCH ×2 (02:01→09:54)
[2019-12-21] MEDS: D5% in Water 1,000 ML IVC SCH ×3 (02:02→16:33)
[2019-12-21] MEDS: *HR* Heparin 5,000 UNIT/ML VIAL SQ SCH ×3 (05:16→16:32)
[2019-12-21 06:17] LABS: Basophils % 0.2 %; Eosinophils # 0.1 K/mcL (0.0-0.6); Eosinophils % 0.3 %; Hematocrit 38.5 % (37.5-50.1); Hemoglobin 11.8 g/dL (12.9-16.9); Immature Granulocytes % 2.6 % (0-4); Lymphocytes # 1.1 K/mcL (0.6-4.6); Lymphocytes % 4.7 %; Mean Corpuscular HGB Conc 30.6 g/dL (31.6-35.5); Mean Corpuscular Hemoglobin 30.3 pg (28.0-33.3); Mean Platelet Volume 9.9 fL (9.4-12.4); Monocytes # 0.9 K/mcL (0.0-1.3); Neutrophils # 20.7 K/mcL (1.6-8.9); Platelet Count 168 K/mcL (140-400); Red Blood Count 3.89 M/mcL (4.19-5.50); Red Cell Distribution Width 14.7 % (11.5-14.5); Segmented Neutrophils % 88.2 %; White Blood Count 23.5 K/mcL (4.3-11.1)
[2019-12-21 06:21] LABS: Basophils # 0.1 K/mcL (0.0-0.2)
[2019-12-21 06:37] LABS: Calcium 8.7 mg/dL (8.6-10.3); Potassium 4.1 mEq/L (3.5-5.1)
[2019-12-21] MEDS ORDERED: Insulin LISPRO 300 UNITS/3 ML VIAL SQ SCH (07:30)
[2019-12-21] MEDS: Insulin LISPRO 300 UNITS/3 ML VIAL SQ SCH ×4 (08:41→23:54)
[2019-12-21] MEDS: Carbidopa/Levodopa 25/250 TABLET PO SCH ×2 (08:42→22:02)
[2019-12-21] MEDS: MYRBETRIQ 50MG PO SCH (08:42)
[2019-12-22] MEDS: D5% in Water 1,000 ML IVC SCH (00:26)
[2019-12-22] MEDS: *HR* Heparin 5,000 UNIT/ML VIAL SQ SCH ×2 (05:44→16:28)
[2019-12-22] MEDS: Insulin LISPRO 300 UNITS/3 ML VIAL SQ SCH ×3 (05:45→17:01)
[2019-12-22 06:39] LABS: Hematocrit 36.9 % (37.5-50.1); Hemoglobin 11.5 g/dL (12.9-16.9); Mean Corpuscular HGB Conc 31.2 g/dL (31.6-35.5); Mean Corpuscular Hemoglobin 30.4 pg (28.0-33.3); Mean Corpuscular Volume 97.6 fL (83.0-100.0); Mean Platelet Volume 11.2 fL (9.4-12.4); Red Blood Count 3.78 M/mcL (4.19-5.50); Red Cell Distribution Width 14.6 % (11.5-14.5); White Blood Count 19.7 K/mcL (4.3-11.1)
[2019-12-22 06:47] LABS: Platelet Count 94 K/mcL (140-400)
[2019-12-22 07:00] LABS: Calcium 8.4 mg/dL (8.6-10.3); Potassium 3.8 mEq/L (3.5-5.1)
[2019-12-22] MEDS ORDERED: D5% in Water 1,000 ML IVC SCH (08:52)
[2019-12-22] MEDS: Carbidopa/Levodopa 25/250 TABLET PO SCH ×2 (09:08→20:35)
[2019-12-22] MEDS: MYRBETRIQ 50MG PO SCH (09:13)
[2019-12-22 21:05] LABS: Sodium, Urine 57.3 mEq/L
[2019-12-23] MEDS: Insulin LISPRO 300 UNITS/3 ML VIAL SQ SCH ×4 (00:44→17:57)
[2019-12-23] MEDS: *HR* Heparin 5,000 UNIT/ML VIAL SQ SCH ×2 (04:44→16:50)
[2019-12-23 06:54] LABS: Hematocrit 36.2 % (37.5-50.1); Hemoglobin 11.4 g/dL (12.9-16.9); Mean Corpuscular HGB Conc 31.5 g/dL (31.6-35.5); Mean Corpuscular Hemoglobin 30.2 pg (28.0-33.3); Mean Corpuscular Volume 95.8 fL (83.0-100.0); Mean Platelet Volume 9.9 fL (9.4-12.4); Platelet Count 182 K/mcL (140-400); Red Blood Count 3.78 M/mcL (4.19-5.50); Red Cell Distribution Width 14.6 % (11.5-14.5)
[2019-12-23 07:10] LABS: Calcium 8.3 mg/dL (8.6-10.3); Potassium 4.3 mEq/L (3.5-5.1)
[2019-12-23] MEDS: D5% in Water 1,000 ML IVC SCH ×2 (08:08→18:14)
[2019-12-23] MEDS: Carbidopa/Levodopa 25/250 TABLET PO SCH ×2 (10:43→21:26)
[2019-12-23] MEDS: MYRBETRIQ 50MG PO SCH (10:43)
[2019-12-23] MEDS: D5% in Water 1,000 ML IVC PRN (17:56)
[2019-12-24] MEDS: Insulin LISPRO 300 UNITS/3 ML VIAL SQ SCH ×3 (00:50→12:05)
[2019-12-24] MEDS: D5% in Water 1,000 ML IVC PRN (04:08)
[2019-12-24] MEDS: D5% in Water 1,000 ML IVC SCH ×2 (04:15→09:35)
[2019-12-24] MEDS: *HR* Heparin 5,000 UNIT/ML VIAL SQ SCH (05:50)
[2019-12-24 06:39] VITALS: BP 109/64
[2019-12-24 06:49] LABS: Calcium 8.2 mg/dL (8.6-10.3); Potassium 4.2 mEq/L (3.5-5.1)
[2019-12-24 07:26] LABS: Hematocrit 35.7 % (37.5-50.1); Hemoglobin 11.2 g/dL (12.9-16.9); Mean Corpuscular HGB Conc 31.4 g/dL (31.6-35.5); Mean Corpuscular Hemoglobin 29.9 pg (28.0-33.3); Mean Corpuscular Volume 95.2 fL (83.0-100.0); Mean Platelet Volume 10.2 fL (9.4-12.4); Platelet Count 154 K/mcL (140-400); Red Blood Count 3.75 M/mcL (4.19-5.50); Red Cell Distribution Width 14.5 % (11.5-14.5); White Blood Count 14.4 K/mcL (4.3-11.1)
[2019-12-24] MEDS ORDERED: D5% in Water 1,000 ML IVC SCH (08:15)
[2019-12-24] MEDS: MYRBETRIQ 50MG PO SCH (08:52)
[2019-12-24] MEDS: Carbidopa/Levodopa 25/250 TABLET PO SCH (08:52)
[2019-12-24] MEDS ORDERED: levoFLOXacin 750 MG/150 ML 750 MG/150 ML BAG IVPB SCH (09:00)
[2019-12-24] MEDS ORDERED: Aminoglycoside Consult 1 EACH MC ONE (17:40)
[2019-12-26 07:09] LABS: Mycoplasma pneumoniae IgG 3.28 U/L (<=0.09)
== END 2019-12-24 17:41 | disposition hospice, inpatient (51) | DRG 177 ==
LOC: INPPIK 09:03 → EMEROOPIK 09:03 → INPPIK 12:19
PROVIDERS: ADMIT Family Medicine; ATTEND Family Medicine